=== PATIENT | female | born 1975 | race Caucasian/White ===

== ENCOUNTER 2018-05-01 19:19 | Emergency (ER) | payer BC, OTHER ==
[2018-05-01] MEDS ORDERED: methylPREDNISolone SODIUM SUC 125 MG/2 ML VIAL ONE (19:25)
[2018-05-01] MEDS ORDERED: SODIUM CHLORIDE 0.9% 250ML 250 ML ONE (19:25)
[2018-05-01] MEDS ORDERED: methylPREDNISolone SODIUM SUC 125 MG/2 ML VIAL IV ONE (19:25)
[2018-05-01] MEDS ORDERED: ANTIVENIN SNAKE POLYIMMUNE FAB 1 EA VIAL ONE (19:25)
[2018-05-01] MEDS ORDERED: ANTIVENIN SNAKE POLYIMMUNE FAB 4 EA in SODIUM CHLORIDE 0.9% 250ML 250 ML IV INFUS ONE (19:26)
[2018-05-01] MEDS ORDERED: IPRATROPIUM/ALBUTEROL 3 ML VIAL NEB ONE (19:37)
--- NOTE | 2018-05-01 19:56 | ED.PDOC ---
History of Present Illness - General Chief Complaint: Bite: Animal/Insect/Human Time Seen by Provider: 05/01/18 19:25 Source: patient Exam Limitations: no limitations - History of Present Illness Initial Comments: the patient's a 43-year-old female presenting to emergency room after having been bitten on the foot by [place] snake [place] She did not get a good look at the snake however over the coming hour she did start getting significant swelling in her footas well as significant shortness of breath and some chest discomfort. By the time EMS arrived she was having florid wheezing and audible rhonchi. She was given IV Benadryl after she confirmed that she was not allergic to IV Benadryl. EMS reported that very soon after that she started breathing more easily. By the time she arrived here she still did have some scattered wheezes and mild increased work of breathing. This didn't improve further with IV Solu-Medrol. The patient also received a breathing treatment. The patient also is having still some mild chest discomfort as well as some increasing back pain.. Timing/Duration: 1 hour Severity: severe Improving Factors: nothing Worsening Factors: nothing Associated Symptoms: chest pain, diaphoresis, malaise, shortness of breath Review of Systems - Review of Systems Constitutional: States: malaise EENTM: States: no symptoms reported Respiratory: States: cough, short of breath, wheezing Cardiology: States: chest pain, edema Gastrointestinal/Abdominal: States: nausea - ild Genitourinary: States: no symptoms reported Musculoskeletal: States: back pain, joint pain, muscle pain Skin: States: see HPI Neurological: States: anxiety Endocrine: States: no symptoms reported All other Systems: No Change from Baseline Past Medical History (General) - Patient Medical History Hx Seizures: Yes Hx Cardiac Disorders: Yes - Vaccination History Hx Tetanus, Diphtheria Vaccination: - unkown Family Medical History - Family History Mother Family History: Unknown Physical Exam - Physical Exam General Appearance: Alert, Anxious - she is a little bit drowsy from the pain and anxiety medications. Eye Exam: bilateral normal Ears, Nose, Throat: hearing grossly normal, normal ENT inspection Neck: non-tender, supple Respiratory: other - mild increased work of breathing. Mild scattered wheezes at this time. No remaining rhonchi or rales upon arrival here. Cardiovascular/Chest: normal peripheral pulses, tachycardia Peripheral Pulses: radial,right: 2+, radial,left: 2+, dorsalis pedis,right: 2+, dorsalis pedis,left: 2+, posterior tibialis,right: 2+, posterior tibialis,left: 2+ Gastrointestinal/Abdominal: non tender, soft Rectal Exam: deferred Back Exam: CVA tenderness (R), CVA tenderness (L) Extremity: normal capillary refill - the area is of course extremely tender to touch, other - the patient is having swelling of her right lower extremity. Please see nurse's notes for measurements. Puncture site to the right inner heel has been circled by family. 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 The type of snake is uncertain though it is likely venomous given her reaction. The most common types of venomous snakes in this area or copperheads and rattlesnakes. The generalized symptoms seem to make this more likely a rattlesnake bite however she could have an allergic reaction to a copperhead bite as well that might produce a similar presentation. Given her history of multiple comorbidities and significant reaction to this, the patient is going to be started on CroFab at 4 vials. She is going to be transferred out to a facility that has additional vials for treatment if needed. Vital signs are remaining stable at this point. She is continuing on mild supplemental oxygen. If she develops any evidence of any hypotension or recurrence of pulmonary symptoms then consideration will be given towards a low flow epi drip. the patient is going to be transferred to a higher level of care via helicopter in order to reduce the transit time and potential for deterioration in transit, given her already significant reaction. Laboratory work will be forwarded to the receiving facility as it comes in. critical care time spent on treatment of this patient as well as on arrangements for transfer for higher level of care is 40 minutes. This is excluding otherwise billable procedures. - Results/Orders Results/Orders: laboratory work is pending at the time of transfer and will be forwarded. EKG shows mild sinus tachycardia. No acute ST segment changes concerning for ischemia. Departure - Departure Clinical Impression: Snake bite poisoning Qualifiers: Encounter type: initial encounter Injury intent: accidental or unintentional Qualified Code(s): T63.001A - Toxic effect of unspecified snake venom, accidental (unintentional), initial encounter Disposition: Transfer to Hospital Condition: Serious Transfer to Outside Facility - Transfer Information Accepting Provider:: dr saleh Accepting Facility: [facility] Reason for Transfer: specialized care not available
--- NOTE | 2018-05-01 20:32 | RAD ---
EXAM DESCRIPTION: Chest,1 View CLINICAL HISTORY:43 years Female, snake bite wheezes Comparison: None FINDINGS: Single AP view of the chest. Patient is slightly rotated towards the left. Cardiomediastinal silhouette is within normal limits. No focal lung consolidation. No pleural effusion. No pneumothorax. No acute osseous finding. IMPRESSION: No acute chest finding. Electronically signed by: Akosua Salinas MD 05/01/2018 8:30 PM CDT
[2018-05-02 01:12] VITALS: BP 142/84; TEMP 98.3; O2SAT 100
== END 2018-05-01 20:45 | disposition short-term general hospital (02) ==
LOC: ER 19:19
DX: T63.001A Toxic effect of unspecified snake venom, accidental (unintentional), initial encounter (principal); Z87.898 Personal history of other specified conditions; Y92.828 Other wilderness area as the place of occurrence of the external cause
CPT/HCPCS: 36415; 71045; 80053; 82550; 82553; 83605; 83880; 84484; 84703; 85025; 85362; 85379; 85384; 85610; 85730; 93005; J2930; J7050; J7620

== ENCOUNTER 2018-05-03 22:07 | Emergency (ER) | payer BC, OTHER ==
[2018-05-03] MEDS ORDERED: HYDROcodone 10MG/APAP 325MG 1 EA TAB PO ONE (22:40)
[2018-05-03] MEDS ORDERED: ONDANSETRON ODT 8 MG TAB SL ONE (22:40)
[2018-05-03] MEDS ORDERED: PROMETHAZINE HCL INJ 25 MG/ML VIAL IM ONE (22:40)
[2018-05-03 22:42] VITALS: TEMP 98.7; O2SAT 100
--- NOTE | 2018-05-04 00:04 | ED.PDOC ---
History of Present Illness - General Chief Complaint: Lower Extremity Injury Stated Complaint: rt lower leg pain, nausea Time Seen by Provider: 05/03/18 22:35 Source: patient Exam Limitations: no limitations - History of Present Illness Initial Comments: the patient is a 43-year-old female presenting to the emergency room less than 5 hours after being discharged from [facility] for a venomous snake bite. She received CroFab here initially and was sent to [facility] for additional vials. She was monitored overnight and then released. The patient has had some nausea and vomiting since she's gotten home as well as some uncontrolled pain. She did not realize that the snake bite with her for another couple of weeks still. She has been taking her hydrocodone. I have not seen her throw up since she arrived here. On examination of the leg the swelling is significantly decreased compared to yesterday. I see no evidence of significant bruising or necrosis. She does appear to be neurovascularly at her baseline. Range of motion is preserved. Strength is preserved. She does not appear to be any distress. She actually looks very good. Timing/Duration: 24 hours Severity: moderate Improving Factors: nothing Worsening Factors: nothing Associated Symptoms: loss of appetite, malaise, nausea/vomiting, weakness Allergies/Adverse Reactions: Allergies Diphenhydramine [From Benadryl] Allergy (Verified 05/01/18 19:56) Metoclopramide [From Reglan] Allergy (Verified 05/01/18 19:56) Sulfamethoxazole w/Trimethoprim [From Septra] Allergy (Verified 05/01/18 19:56) Sumatriptan [From Imitrex] Allergy (Verified 05/01/18 19:56) Tramadol Allergy (Verified 05/01/18 19:56) Home Medications: Ambulatory Orders Buprenorphine [Butrans] 15 mcg TD 05/03/18 Dabigatran Etexilate Mesylate [Pradaxa] 05/03/18 Dexlansoprazole [Dexilant] 05/03/18 Ergocalciferol [Vitamin D] 05/03/18 Folic Acid 05/03/18 Furosemide [Furosemide] 05/03/18 Gabapentin [Gabapentin] 05/03/18 Lasix 05/03/18 Levetiracetam [Keppra] 500 mg PO 05/03/18 Multi Vitamin 05/03/18 [place] 10/325 05/03/18 Ondansetron HCl [Zofran] 05/03/18 Phenergan Tablet 05/03/18 Sucralfate [Sucralfate] 05/03/18 Tizanidine HCl [Zanaflex] 05/03/18 Topiramate [Topiramate] 05/03/18 Zaleplon [Zaleplon] 05/03/18 Ondansetron [Zofran Odt] 4 mg PO Q4H PRN #10 tab 05/04/18 Promethazine HCl 25 mg PO Q6H PRN #10 tab 05/04/18 Review of Systems - Review of Systems Constitutional: States: malaise, weakness - generalized EENTM: States: no symptoms reported Respiratory: States: no symptoms reported Cardiology: States: no symptoms reported Gastrointestinal/Abdominal: States: nausea, vomiting Genitourinary: States: no symptoms reported Musculoskeletal: States: other - diffuse pain Skin: States: no symptoms reported Neurological: States: anxiety Endocrine: States: no symptoms reported All other Systems: No Change from Baseline Past Medical History (General) - Patient Medical History Hx Seizures: Yes Hx Cardiac Disorders: Yes - Vaccination History Hx Tetanus, Diphtheria Vaccination: Yes - Female History Patient is a Female of Child Bearing Age (10 -59 yrs old): No Family Medical History - Family History Mother Family History: Unknown Physical Exam - Physical Exam General Appearance: Alert, Comfortable, No apparent distress Eye Exam: bilateral normal Ears, Nose, Throat: hearing grossly normal, normal ENT inspection, normal pharynx Neck: supple Respiratory: lungs clear, normal breath sounds, no respiratory distress, no accessory muscle use Cardiovascular/Chest: normal peripheral pulses, regular rate, rhythm, no edema Peripheral Pulses: radial,right: 2+, radial,left: 2+, dorsalis pedis,right: 2+, dorsalis pedis,left: 2+, posterior tibialis,right: 2+, posterior tibialis,left: 2+ Gastrointestinal/Abdominal: non tender, soft Rectal Exam: deferred Extremity: normal range of motion, normal capillary refill, pedal edema - trace to the right lower extremity, other - she does have pain at the area of the bite. 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 The patient is doing better at this point in time. She'll be written for some Zofran and Phenergan for as needed use. She is to take her Carafate 4 times daily and her dexilant at least twice daily for the next week. She needs to keep herself hydrated. She needs to do range of motion exercises with the affected leg. ER warnings were given. She needs to follow-up with her primary care doctor later this week. Departure - Departure Clinical Impression: Nausea and vomiting Qualifiers: Vomiting type: unspecified Vomiting Intractability: non-intractable Qualified Code(s): R11.2 - Nausea with vomiting, unspecified Disposition: Discharge to Home or Self Care Condition: Fair Departure Forms: ED Discharge - Pt. Copy, Patient Portal Self Enrollment Instructions: Nausea and Vomiting, Adult Diet: bland diet Activity: increase activity as tolerated Prescriptions: Ondansetron [Zofran Odt] 4 mg PO Q4H PRN #10 tab PRN Reason: Vomiting Promethazine HCl 25 mg PO Q6H PRN #10 tab PRN Reason: Vomiting Home Medications: Ambulatory Orders Buprenorphine [Butrans] 15 mcg TD 05/03/18 Dabigatran Etexilate Mesylate [Pradaxa] 05/03/18 Dexlansoprazole [Dexilant] 05/03/18 Ergocalciferol [Vitamin D] 05/03/18 Folic Acid 05/03/18 Furosemide [Furosemide] 05/03/18 Gabapentin [Gabapentin] 05/03/18 Lasix 05/03/18 Levetiracetam [Keppra] 500 mg PO 05/03/18 Multi Vitamin 05/03/18 [place] 10/325 05/03/18 Ondansetron HCl [Zofran] 05/03/18 Phenergan Tablet 05/03/18 Sucralfate [Sucralfate] 05/03/18 Tizanidine HCl [Zanaflex] 05/03/18 Topiramate [Topiramate] 05/03/18 Zaleplon [Zaleplon] 05/03/18 Ondansetron [Zofran Odt] 4 mg PO Q4H PRN #10 tab 05/04/18 Promethazine HCl 25 mg PO Q6H PRN #10 tab 05/04/18 Additional Instructions: the patient's a 43-year-old female presenting to the emergency room secondary to some nausea and vomiting after she was released from another hospital secondary to a venomous snake bite. The patient is doing better at this point in time. She'll be written for some Zofran and Phenergan for as needed use. She is to take her Carafate 4 times daily and her dexilant at least twice daily for the next week. She needs to keep herself hydrated. She needs to do range of motion exercises with the affected leg. ER warnings were given. She needs to follow-up with her primary care doctor later this week.
[2018-05-04 00:28] VITALS: BP 124/76
== END 2018-05-04 00:28 | disposition home or self-care (01) ==
LOC: ER 22:07
DX: T63.001D Toxic effect of unspecified snake venom, accidental (unintentional), subsequent encounter (principal); R11.2 Nausea with vomiting, unspecified